=== PATIENT | female | born 1975 | race Caucasian/White ===

== ENCOUNTER 2017-12-11 00:52 | Emergency (ER) | payer OTHER ==
[~2017-12-11] VITALS: Ht 172.7 cm; Wt 85.3 kg
[2017-12-11 00:56] VITALS: Ht 172.7 cm; Wt 85.3 kg
[2017-12-11 04:40] VITALS: BP 130/72
== END 2017-12-11 04:40 | disposition home or self-care (01) ==
LOC: ED 00:52
DX: H16.001 Unspecified corneal ulcer, right eye (principal); H10.89 Other conjunctivitis; L03.213 Periorbital cellulitis

== ENCOUNTER 2018-03-09 21:42 | Emergency (ER) | payer OTHER ==
[~2018-03-09] VITALS: Ht 167.6 cm; Wt 86.2 kg
[2018-03-09 21:45] VITALS: Ht 167.6 cm; Wt 86.2 kg
[2018-03-09 22:35] LABS: BASOPHIL % 0.1 % (0-2)
[2018-03-09 22:43] LABS: RED CELL DISTRIBUTION WIDTH 17.7 % (11.5-14.5)
[2018-03-09 22:44] LABS: PLATELET COUNT 553 x10^3mcL (130-400)
[2018-03-09 22:56] LABS: microscopic required? NO
[2018-03-09 22:59] LABS: rbc morphology (normal/abnorm) ABNORMAL (NORMAL)
[2018-03-09 23:00] LABS: ovalocyte/elliptocyte 2+; tear drop cell (dacryocyte) 1+
[2018-03-09 23:10] LABS: CALCIUM 10.1 mg/dL (8.5-10.1); CARBON DIOXIDE 29.1 mmol/L (21-32); CHLORIDE SERUM 103 mmol/L (98-107); GFR1 > 60 mL/min; GLUCOSE SERUM 97 mg/dL (74-106); POTASSIUM SERUM 4.1 mmol/L (3.5-5.1); SODIUM SERUM 140 mmol/L (136-145)
[2018-03-09 23:11] LABS: urine erythrocyte NEGATIVE (NEGATIVE)
[2018-03-09 23:15] LABS: ALKALINE PHOSPHATASE 71 U/L (46-116); ALT/SGPT 3 U/L (14-59); AMYLASE 26 U/L (25-115); AST/SGOT 11 U/L (15-37); BILIRUBIN TOTAL 0.17 mg/dL (0.20-1.00); LIPASE 88 IU/L (73-393); TOTAL PROTEIN, SERUM 7.5 g/dL (6.4-8.2)
[2018-03-09 23:16] LABS: ALBUMIN 3.1 g/dL (3.4-5.0)
[2018-03-09 23:16] LABS: AMPHETAMINE QUAL UR POSITIVE (See below)
[2018-03-10 00:29] VITALS: BP 133/70
== END 2018-03-09 23:03 | disposition left against medical advice (07) ==
LOC: ED 21:42
PROVIDERS: Emergency Medicine
DX: R10.84 Generalized abdominal pain (principal); D50.9 Iron deficiency anemia, unspecified; H54.7 Unspecified visual loss
CPT/HCPCS: 36415; 83880; J1885

== ENCOUNTER 2018-03-11 22:18 | Emergency (ER) | payer OTHER ==
[~2018-03-11] VITALS: Ht 165.1 cm; Wt 87.5 kg
[2018-03-11 22:25] VITALS: Ht 165.1 cm; Wt 87.5 kg
[2018-03-12 00:32] LABS: BASOPHIL % 0.2 % (0-2)
[2018-03-12 00:38] LABS: CALCIUM 8.1 mg/dL (8.5-10.1); CARBON DIOXIDE 26.1 mmol/L (21-32); CHLORIDE SERUM 105 mmol/L (98-107); GFR1 > 60 mL/min; GLUCOSE SERUM 111 mg/dL (74-106); POTASSIUM SERUM 3.9 mmol/L (3.5-5.1); SODIUM SERUM 138 mmol/L (136-145)
[2018-03-12 00:46] LABS: ALBUMIN 3.3 g/dL (3.4-5.0); ALKALINE PHOSPHATASE 74 U/L (46-116); ALT/SGPT 17 U/L (14-59); AST/SGOT 14 U/L (15-37); BILIRUBIN TOTAL 0.1 mg/dL (0.20-1.00); TOTAL PROTEIN, SERUM 7.4 g/dL (6.4-8.2)
[2018-03-12 00:51] LABS: PLATELET COUNT 539 x10^3mcL (130-400)
[2018-03-12 01:50] LABS: rbc morphology (normal/abnorm) ABNORMAL (NORMAL); tear drop cell (dacryocyte) 1+
[2018-03-12 02:29] VITALS: BP 141/80
== END 2018-03-12 00:17 | disposition left against medical advice (07) ==
LOC: ED 22:18
PROVIDERS: Specialist
DX: D64.9 Anemia, unspecified (principal); R10.9 Unspecified abdominal pain
CPT/HCPCS: 36415